=== PATIENT | female | born 1955 | race Asian ===

== ENCOUNTER 2016-10-15 09:45 | Emergency (ER) | payer SELFPAY ==
[2016-10-15 09:50] VITALS: TEMP 98.4
[2016-10-15] MEDS ORDERED: NS 1,000 ML IV ONE (10:11)
--- NOTE | 2016-10-15 10:18 | EDPHY ---
H & P Stated Complaint: back pain HPI/ROS: CHIEF COMPLAINT: Back pain HISTORY OF PRESENT ILLNESS: patient presents with son at bedside. She is Mandarin speaking only, thus we did obtain a certified language line seismic interpreter. She reports 1 week of generalized back pain without injury. This is difficult for them to isolate, and she points to her entire back. Worse in the morning. Also worse when sitting up or lying down. She does not quantify or qualify the pain. Some improvement throughout the day. No numbness or tingling of the legs or saddle, but does report some difficulty ambulating due to the pain. No fevers or chills. No urinary complaints. No chest pain or shortness of breath. No injury or trauma of any kind. No medical care here in the [facility]. Last seen in July or August of last year in [place]. She has been taking ibuprofen she received from [facility] with no other medications. Reports possible diagnosis hypertension, but not on any medication for this. No other associated complaints or modifying factors past FLORIST DESIGNER: Language line, [place] REVIEW OF SYSTEMS: Ten systems reviewed and are negative unless otherwise noted in the HPI EXAMINATION General Appearance: Alert, no distress Head: normocephalic, atraumatic Eyes: Pupils equal and round, no conjunctival pallor or injection ENT, Mouth: Mucous membranes moist, uvula midline. No lesions. Neck: Normal inspection, supple, non-tender Respiratory: Lungs are clear to auscultation Cardiovascular: Regular rate and rhythm , pulses intact distally . Radial pulses are symmetric at 2+. DP and PT pulses are symmetric at 2+ Gastrointestinal: Abdomen is soft and nontender Back: generalized tenderness about the back. There is minimal bony tenderness of the thoracic and lumbar. No step-offs, crepitus or deformity. Range of motion is limited due to pain with mild resting cuts doses. Neurological: A&O, Two through 12 grossly intact, nonfocal. Strength is 5/5 in all limbs. Sensory intact distally Skin: Warm and dry, no rash Extremities: Nontender, no pedal edema Psychiatric: Mood and affect normal DIFFERENTIAL DIAGNOSES: Including but not limited to acute myofascial back strain, acute thoracic back pain, acute lumbar back pain, discopathy, aneurysm, dissection. MDM: Thoracic and upper lumbar back pain approximately 1 week without trauma or injury. The patient is very benign in appearance with what appears to be musculoskeletal pain. However the patient has no medical care of consistency, and has expressed concern that it could be coming from inside her chest. This will obtain laboratory studies and a CT scan of the chest to definitively rule out any intrathoracic abnormality. Clinical suspicion is very high for appear muscular pain. She is resting comfortably in no acute distress with normal vital signs. 11:14 a.m. I have re-evaluated this patient. They remain hemodynamically stable and in no distress. No further complaints at this time. 12:40 p.m. I have re-evaluated this patient. They remain hemodynamically stable and in no distress. No further complaints at this time.I have informed them that she has a chronic T8 compression fracture, that we have arranged for brace to be placed today. I discussed the case with the neurosurgery group salon/spa manager, Raffy Allison PA-C, and he is comfortable with this plan. He would like to be seen with anyone in their group at the soonest appointment available. She remains neurovascular intact and hemodynamically stable with minimal pain at rest. 12:50 Sh[facility] has been Contacted for [place] brace placement. After that she will be discharged home with instructions to follow up with Neurosurgery for definitive care. 2:30 p.m. I have discussed extensively with the patient via language line interpretation. She did not like how she felt on the [place], but her vital signs were stable. I informed her that this was a side effect of the medication that would likely were off for the next 2 hours. She did not wear off, she is to return to the ER after receiving her brace. we have discussed at great length the next steps for the patient. She is to proceed directly to [facility] to have her brace placed. She is then to contact the neurosurgeon for 1st available appointment for ongoing care of the back. She is return to the ER immediately for worsening pain, saddle anesthesia, weakness of the lower extremities, incontinence of bowel or bladder. Patient and her son at bedside voiced understanding of this. All of this was done with the use of a certified language line seismic interpreter. EKG: Interpreted by Dr. Caballero and reviewed by me. No acute ischemia. SUPERVISION: Case discussed with Dr. Caballero Source: Patient, Family, Termite Exterminator Exam Limitations: No limitations - Personal History Current Tetanus/Diphtheria Vaccine: No Current Tetanus Diphtheria and Acellular Pertussis (TDAP): Unsure - Medical/Surgical History Hx Asthma: No Hx Chronic Respiratory Disease: No Hx Diabetes: No Hx Cardiac Disease: No Hx Renal Disease: No Hx Cirrhosis: No Hx Alcoholism: No Other PMH: Hypertension, hypercholesterolemia - Family History Significant Family History: No pertinent family hx - Social History Smoking Status: Never smoked Constitutional: Initial Vital Signs Temperature (C) 98.4 F 10/15/16 09:48 Heart Rate 94 10/15/16 09:48 Respiratory Rate 16 10/15/16 09:48 Blood Pressure 160/89 H 10/15/16 09:48 O2 Sat (%) 96 10/15/16 09:48 O2 Delivery Mode Room Air Allergies/Adverse Reactions: No Known Allergies Allergy (Unverified 01/07/16 23:56) Home Medications: Medication Instructions Recorded Ibuprofen 800 mg PO TID PRN #10 tablet 01/07/16 CYCLOBENZAPRINE HCL [Flexeril] 5 mg PO TIDPRN PRN #15 tab 10/15/16 Norvasc 10/15/16 Medical Decision Making - Data Points Laboratory Results: Laboratory Results 10/15/16 10:20 10/15/16 10:20 10/15/16 10/15/16 10:20 10:15 WBC 8.13 10^3/uL (3.80-9.50) RBC 5.03 10^6/uL (4.18-5.33) Hgb 15.2 g/dL (12.6-16.3) Hct 46.0 % (38.0-47.0) MCV 91.5 fL (81.5-99.8) MCH 30.2 pg (27.9-34.1) MCHC 33.0 g/dL (32.4-36.7) RDW 12.4 % (11.5-15.2) Plt Count 327 10^3/uL (150-400) MPV 8.2 L fL (8.7-11.7) Neut % (Auto) 66.1 % (39.3-74.2) Lymph % (Auto) 28.5 % (15.0-45.0) [place] % (Auto) 4.3 L % (4.5-13.0) Eos % (Auto) 0.7 % (0.6-7.6) Baso % (Auto) 0.2 L % (0.3-1.7) Nucleat RBC Rel Count 0.0 % (0.0-0.2) Absolute Neuts (auto) 5.36 10^3/uL (1.70-6.50) Absolute Lymphs (auto) 2.32 10^3/uL (1.00-3.00) Absolute Monos (auto) 0.35 10^3/uL (0.30-0.80) Absolute Eos (auto) 0.06 10^3/uL (0.03-0.40) Absolute Basos (auto) 0.02 10^3/uL (0.02-0.10) Absolute Nucleated RBC 0.00 10^3/uL (0-0.01) Immature Gran % 0.2 % (0.0-1.1) Immature Gran # 0.02 10^3/uL (0.00-0.10) PT 12.9 SEC (12.0-15.0) INR 0.98 (0.83-1.16) APTT 31.0 SEC (23.0-38.0) Sodium 144 mEq/L (134-144) Potassium 4.0 mEq/L (3.5-5.2) Chloride 104 mEq/L (97-110) Carbon Dioxide 24 mEq/l (22-31) Anion Gap 16 mEq/L (8-16) BUN 21 mg/dL (7-23) Creatinine 0.7 mg/dL (0.6-1.0) Estimated GFR > 60 Glucose 112 H mg/dL (70-100) Calcium 9.6 mg/dL (8.5-10.4) Troponin I < 0.012 ng/mL (0-0.034) Urine Color YELLOW Urine Appearance CLEAR Urine pH 5.0 (5.0-7.5) Ur Specific [place] 1.014 (1.002-1.030) Urine Protein NEGATIVE (NEGATIVE) Urine Ketones NEGATIVE (NEGATIVE) Urine Blood NEGATIVE (NEGATIVE) Urine Nitrate NEGATIVE (NEGATIVE) Urine Bilirubin NEGATIVE (NEGATIVE) Urine Urobilinogen NEGATIVE EU (0.2-1.0) Ur Leukocyte Esterase NEGATIVE (NEGATIVE) Ur Culture Indicated? NOT INDICATED (NI) Urine Glucose NEGATIVE (NEGATIVE) Medications Given: Discontinued Medications Sodium Chloride (Ns) 1,000 mls @ 0 mls/hr IV ONCE ONE PRN Reason: Wide Open Stop: 10/15/16 10:12 Last Admin: 10/15/16 10:26 Dose: 1,000 mls Departure - Departure Disposition: Home, Routine, Self-Care Clinical Impression: Wedge compression fracture of T8 vertebra Qualifiers: Encounter type: initial encounter Fracture type: closed Qualifier Code: ( S22.060A) Wedge compression fracture of T7-T8 vertebra, initial encounter for closed fracture T11 vertebral fracture Qualifiers: Encounter type: initial encounter Fracture type: closed Fracture morphology: unspecified fracture morphology Qualifier Code: (S22.089A) Unspecified fracture of T11-T12 vertebra, initial encounter for closed fracture Condition: Good Instructions: Thoracolumbar Fracture (ED) Additional Instructions: Upon discharge, proceed immediately to [facility] to have [place] brace placement. Subsequently, contacted neurosurgeon as listed. Follow up with them with the 1st appointment available with her surgeon available. Return to ER for worsening pain, numbness, tingling, weakness, incontinence of urine or feces. Referrals: NONE *PRIMARY CARE P,. [Primary Care Provider] - As per Instructions Aurelia Granado MD [Medical Doctor] - 1-2 days without fail ( Informed by Raffy Allison PA-C, the patient should be seen by the 1st available surgeon at the 1st available appointment.) Shahid Hernández MD [Medical Doctor] - As per Instructions Prescriptions: CYCLOBENZAPRINE HCL [Flexeril] 5 mg PO TIDPRN PRN #15 tab PRN Reason: Pain, Mild
--- NOTE | 2016-10-15 10:22 | CPEKG ---
Heart Rate: 84 RR Interval: 714 P-R Interval: 156 QRSD Interval: 78 QT Interval: 356 QTC Interval: 421 P [place]: 24 QRS [place]: 42 T Wave [place]: 17 EKG Severity - ABNORMAL ECG - EKG Impression: SINUS RHYTHM EKG Impression: PROBABLE POSTERIOR INFARCT Electronically Signed By: Jose Caballero 15-Oct-2016 10:24:17
[2016-10-15 10:24] LABS: COLOR YELLOW; LEUKOCYTE ESTERASE,URINE NEGATIVE (NEGATIVE); NITRITE,URINE NEGATIVE (NEGATIVE)
[2016-10-15 10:31] LABS: % IMMATURE GRANULYOCYTES 0.2 % (0.0-1.1); ABSOLUTE IMMATURE GRANULOCYTES 0.02 10^3/uL (0.00-0.10); ADD DIFF? NO; ADD MORPH? NO; ADD SCAN? NO; ATYPICAL LYMPHOCYTE FLAG 10 (0-99); FRAGMENT RBC FLAG 0 (0-99); HEMOGLOBIN 15.2 g/dL (12.6-16.3); LEFT SHIFT FLG 0 (0-99); LIPEMIA HEMOLYSIS FLAG 80 (0-99); MEAN CELL HEMOGLOBIN 30.2 pg (27.9-34.1); MEAN CELL VOLUME 91.5 fL (81.5-99.8); MEAN PLATELET VOLUME 8.2 fL (8.7-11.7); PLATELET CLUMPS FLAG 10 (0-99); PLATELET COUNT 327 10^3/uL (150-400); RED BLOOD CELL COUNT 5.03 10^6/uL (4.18-5.33); RED CELL DISTRIBUTION WIDTH 12.4 % (11.5-15.2)
[2016-10-15 10:45] LABS: INR 0.98 (0.83-1.16); PROTIME(PATIENT) 12.9 SEC (12.0-15.0)
[2016-10-15 10:53] LABS: ANION GAP 16 mEq/L (8-16); CALCIUM 9.6 mg/dL (8.5-10.4); CARBON DIOXIDE 24 mEq/l (22-31); CHLORIDE 104 mEq/L (97-110); CREATININE 0.7 mg/dL (0.6-1.0); GLOMERULAR FILTRATION RATE > 60; GLUCOSE 112 mg/dL (70-100); SODIUM 144 mEq/L (134-144)
[2016-10-15 11:05] LABS: TROPONIN I < 0.012 ng/mL (0-0.034)
[2016-10-15] MEDS ORDERED: IOPAMIDOL (ISOVUE-370) 150 ML BTL IV ONE (11:20)
--- NOTE | 2016-10-15 12:53 | CT ---
CT Pulmonary Angiogram at 1147 hours Clinical Indications: Chest pain. Back pain. Technique: Thinly collimated multidetector helical CT imaging was performed through the chest while 90 mL [id number]-370 were injected intravenously without complication. The images were then transferred to an independent workstation where multiplanar and three-dimensional reconstructions were performed by the interpreting physician and reviewed at multiple windows. Dose reduction techniques were utiliz ed. Findings: Pulmonary angiogram: Pulmonary arteries are well-opacified without evidence for filling defect to ind icate pulmonary embolus. Thoracic aorta demonstrates no evidence for aneurysm or dissection. CHEST: Heart size is within normal limits. No evidence for pericardial effusion. The lungs are clear No significant pulmonary nodule. No evidence for pleural effusion. No significant mediastinal or hil ar lymphadenopathy. There is slight anterior wedge compression deformity of T8 vertebral body involvi ng the superior endplate anteriorly. This is not definitely seen on the chest x-ray of December 2015 but this has a more chronic appearance with sclerosis and no evidence of a fracture line. Slight chronic anterior wedge compression deformity is also seen of T11 which is stable. Visualized upper abdomen i s unremarkable. IMPRESSION: 1. No evidence for thoracic aortic aneurysm or dissection. 2. Mild anterior wedge compression deformity of T8 which has a more chronic appearance although new f rom December 2015. Stable slight anterior wedge compression deformity of T11. Results called to Mat Rapp PA-C.
[2016-10-15] MEDS ORDERED: HYDROCODONE/APAP 5/325 TAB PO ONE (13:02)
[2016-10-15 14:40] VITALS: BP 141/78; PULSE 80; RESP 14; O2SAT 94
== END 2016-10-15 14:52 | disposition home or self-care (01) ==
DX: M48.54XA Collapsed vertebra, not elsewhere classified, thoracic region, initial encounter for fracture (principal); I10 Essential (primary) hypertension
CPT/HCPCS: Q9967